=== PATIENT | female | born 1985 | race Caucasian/White ===

== ENCOUNTER 2018-12-21 06:30 | Day surgery (SDC) | payer OTHER ==
[2018-12-21] MEDS: SOD CHLORIDE 0.9% 1,000 ML IV (07:19)
[2018-12-21] MEDS ORDERED: CEFAZOLIN 2 GM/50 ML (PMX) 50 ML IVPB (08:00)
[2018-12-21] MEDS ORDERED: PROPOFOL 20 ML (09:43)
[2018-12-21] MEDS ORDERED: NEOSTIGMINE 3 MG/3 ML SYRINGE (09:43)
[2018-12-21] MEDS ORDERED: GLYCOPYRROLATE 0.4 MG INJ (09:43)
[2018-12-21] MEDS ORDERED: ROCURONIUM 50 MG INJ (09:43)
[2018-12-21] MEDS ORDERED: CEFAZOLIN 1 GM INJ (09:43)
[2018-12-21] MEDS ORDERED: MIDAZOLAM 1 MG/ML 2 ML INJ (09:43)
[2018-12-21] MEDS ORDERED: DEXAMETHASONE 4 MG/ML 5 ML INJ (09:44)
[2018-12-21] MEDS ORDERED: FENTAnyl 50 MCG/ML VIAL (09:44)
[2018-12-21] MEDS ORDERED: ONDANSETRON 4 MG INJ (09:44)
[2018-12-21] MEDS ORDERED: ROPIVACAINE 0.5 % 30 ML VIAL (09:45)
[2018-12-21] MEDS ORDERED: HYDROmorphONE 1 MG/5 ML IV SYRINGE IV ×3 (10:00)
[2018-12-21] MEDS ORDERED: MEPERIDINE 25 MG INJ IV (10:00)
[2018-12-21] MEDS ORDERED: EPHEDrine 25 MG/5 ML SYG IV (10:00)
[2018-12-21] MEDS ORDERED: ONDANSETRON 4 MG INJ IV (10:00)
[2018-12-21] MEDS ORDERED: hydrALAzine 20 MG INJ IV (10:00)
[2018-12-21] MEDS ORDERED: FENTAnyl 50 MCG/ML VIAL IV ×3 (10:00)
[2018-12-21] MEDS ORDERED: IPRATROPIUM (NEB) 0.5 MG/2.5 ML AMP HHN (10:00)
[2018-12-21] MEDS ORDERED: TRIMETHOBENZAMIDE 100 MG/ML VIAL IM (10:00)
[2018-12-21] MEDS ORDERED: MIDAZOLAM 1 MG/ML 2 ML INJ IV (10:00)
[2018-12-21] MEDS ORDERED: LABETALOL HCL 20MG INJ IV (10:00)
[2018-12-21] MEDS ORDERED: OXYCODONE/ACETAMINOPHEN (5/325) TAB PO ×2 (10:00)
[2018-12-21] MEDS ORDERED: DIPHENHYDRAMINE 50 MG INJ IV (10:00)
[2018-12-21] MEDS ORDERED: ALBUTEROL 0.083% (NEB) 2.5 MG/3 ML AMP HHN (10:00)
[2018-12-21] MEDS ORDERED: KETOROLAC 30 MG INJ (10:31)
[2018-12-21] MEDS ORDERED: HYDROCODONE/APAP (5/325) TAB PO (11:00)
== END 2018-12-21 12:15 | disposition home or self-care (01) ==
LOC: SDS 06:30
DX: R19.00 Intra-abdominal and pelvic swelling, mass and lump, unspecified site (principal); N80.8 Other endometriosis
CPT/HCPCS: 14000; 84703; 88307